=== PATIENT | female | born 1970 | race Caucasian/White ===

== ENCOUNTER 2024-09-01 08:27 | Outpatient (CLI) | payer OTHER | END 2024-09-01 08:28 | disposition home or self-care (01) | LOC: BICRAD 08:27 | PROVIDERS: ATTEND Family Medicine | DX: R20.0 Anesthesia of skin (principal); R20.2 Paresthesia of skin; M47.812 Spondylosis without myelopathy or radiculopathy, cervical region; H54.3 Unqualified visual loss, both eyes; H52.10 Myopia, unspecified eye; R52 Pain, unspecified; R80.9 Proteinuria, unspecified; F43.9 Reaction to severe stress, unspecified; Z97.8 Presence of other specified devices; Z71.9 Counseling, unspecified; Z91.02 Food additives allergy status; Z98.890 Other specified postprocedural states | CPT/HCPCS: 72040 ==

== ENCOUNTER 2024-10-02 08:18 | Outpatient (CLI) | payer OTHER | END 2024-10-02 08:19 | disposition home or self-care (01) | LOC: BICRAD 08:18 | PROVIDERS: ATTEND Family Medicine | DX: R20.0 Anesthesia of skin (principal); M47.816 Spondylosis without myelopathy or radiculopathy, lumbar region | CPT/HCPCS: 72100 ==